=== PATIENT | female | born 1960 ===

== ENCOUNTER → 2018-05-29 21:49 | Outpatient (REF) | payer OTHER, SELFPAY ==
[2018-05-29 23:12] LABS: Add Manual Diff / Slide Review NO; Basophils Absolute Auto 0 /uL (0-100); Basophils Percent Auto 0.3 % (0-2); Eosinophils Absolute Auto 100 /uL (0-450); Eosinophils Percent Auto 0.8 % (2-4); Hematocrit 34.1 % (36-46); Hemoglobin 11.6 g/dL (12.0-16.0); Lymphocytes Absolute Auto 1000 /uL (1100-4500); Lymphocytes Percent Auto 14.1 % (25-40); Mean Corpuscular HGB Conc 34.1 % (30-36); Mean Corpuscular Hemoglobin 27.7 PG (26-34); Mean Corpuscular Volume 81.2 fL (80-100); Monocytes Absolute Auto 400 /uL (0-900); Monocytes Percent Auto 6.5 % (3-14); Neutrophils Absolute Auto 5300 /uL (1500-7000); Neutrophils Percent Auto 78.3 % (50-75); Platelet Count 323 X10^3/uL (150-400); Red Cell Distribution Width 22.4 % (11.6-14.8); White Blood Cell Count 6.8 X10^3/uL (4.5-11.0)
[2018-05-29 23:27] LABS: Alanine Aminotransferase 37 IU/L (9-52); Albumin 4.3 g/dL (3.5-5.0); Alkaline Phosphatase 97 U/L (38-126); Aspartate Aminotransferase 28 IU/L (14-36); Bilirubin Total 0.3 mg/dL (0.2-1.3); Blood Urea Nitrogen 15 mg/dL (7-17); Calcium 9.8 mg/dL (8.4-10.2); Carbon Dioxide 24 mmol/L (22-32); Chloride 93 mmol/L (98-107); Estimated Glomerular Filt Rate > 60.0 mL/min (>60); Globulin 2.2 g/dL (1.7-4.1); Glucose 97 mg/dL (70-100); HEMOLYSIS < 15 (0-50); Potassium 4.2 mmol/L (3.4-5.1); Sodium 128 mmol/L (137-145); Total Protein 6.5 g/dL (6.3-8.2)
[2018-05-29 23:43] LABS: B Type Natriuretic Peptide < 100 (<100)
[2018-05-30 00:56] LABS: Anisocytosis 2+
[2018-05-30 00:57] LABS: Acanthocytes 1+; Ovalocytes 1+
== END ==
LOC: LAB 21:49
PROVIDERS: Visit Provider Family Medicine
DX: I42.0 Dilated cardiomyopathy (principal); Z13.89 Encounter for screening for other disorder; R06.02 Shortness of breath; E08.00 Diabetes mellitus due to underlying condition with hyperosmolarity without nonketotic hyperglycemic-hyperosmolar coma (NKHHC); F43.21 Adjustment disorder with depressed mood; F51.01 Primary insomnia
CPT/HCPCS: 36415; 80053; 83880; 85025

== ENCOUNTER → 2018-09-07 21:27 | Outpatient (ROUT) | payer OTHER, SELFPAY ==
[2018-09-07 23:18] LABS: Add Manual Diff / Slide Review NO; Basophils Absolute Auto 0 /uL (0-100); Basophils Percent Auto 0.4 % (0-2); Eosinophils Absolute Auto 100 /uL (0-450); Eosinophils Percent Auto 1.3 % (2-4); Hematocrit 30.5 % (36-46); Hemoglobin 10.7 g/dL (12.0-16.0); Lymphocytes Absolute Auto 1100 /uL (1100-4500); Lymphocytes Percent Auto 16.2 % (25-40); Mean Corpuscular Hemoglobin 30.3 PG (26-34); Mean Corpuscular Volume 86.6 fL (80-100); Monocytes Absolute Auto 400 /uL (0-900); Monocytes Percent Auto 6.2 % (3-14); Neutrophils Absolute Auto 4900 /uL (1500-7000); Neutrophils Percent Auto 75.9 % (50-75); Platelet Count 231 X10^3/uL (150-400); Red Blood Cell Count 3.53 X10^6/uL (4.0-5.2); Red Cell Distribution Width 12.7 % (11.6-14.8); White Blood Cell Count 6.5 X10^3/uL (4.5-11.0)
[2018-09-07 23:59] LABS: Alanine Aminotransferase 18 IU/L (9-52); Albumin 3.8 g/dL (3.5-5.0); Alkaline Phosphatase 81 U/L (38-126); Aspartate Aminotransferase 18 IU/L (14-36); BUN Creatinine Ratio 26.7 (6-22); Blood Urea Nitrogen 16 mg/dL (7-17); Calcium 9.6 mg/dL (8.4-10.2); Carbon Dioxide 26 mmol/L (22-32); Chloride 99 mmol/L (98-107); Estimated Glomerular Filt Rate > 60.0 mL/min (>60); Globulin 1.9 g/dL (1.7-4.1); Glucose 75 mg/dL (70-100); HEMOLYSIS < 15 (0-50); Potassium 4.5 mmol/L (3.4-5.1); Sodium 134 mmol/L (137-145); Total Protein 5.7 g/dL (6.3-8.2)
[2018-09-08 00:20] LABS: Bilirubin Total < 0.1 mg/dL (0.2-1.3)
[2018-09-08 00:35] LABS: Thyroid Stimulating Hormone 2.12 uIU/mL (0.47-4.68)
[2018-09-08 04:15] LABS: Free T4, Direct Thyroxine 1.13 ng/dL (0.78-2.19)
[2018-09-12 14:22] LABS: Anti Thyroglobulin Antibody 1 IU/mL (< 2); Thyroid Peroxidase Antibodies 2 IU/mL (< 9)
== END ==
PROVIDERS: Visit Provider Family Medicine
DX: F43.21 Adjustment disorder with depressed mood (principal); F51.01 Primary insomnia; E08.00 Diabetes mellitus due to underlying condition with hyperosmolarity without nonketotic hyperglycemic-hyperosmolar coma (NKHHC); R63.4 Abnormal weight loss
CPT/HCPCS: 36415; 80053; 82728; 83036; 84439; 84443; 85025; 86376; 86800